=== PATIENT | female | born 1995 | race Two or more races ===

== ENCOUNTER 2018-08-21 13:17 | Emergency (ER) | payer SELFPAY ==
[~2018-08-21] VITALS: Ht 152.4 cm; Wt 83.9 kg
[2018-08-21 13:29] VITALS: BP 127/92
[2018-08-21] MEDS: TETANUS-DIPTH-ACEL PERTUSSIS 0.5ML SYRG IM ONE (16:13)
== END 2018-08-21 16:15 | disposition home or self-care (01) ==
LOC: ER 13:17
DX: S31.133A Puncture wound of abdominal wall without foreign body, right lower quadrant without penetration into peritoneal cavity, initial encounter (principal); W54.0XXA Bitten by dog, initial encounter; Y93.89 Activity, other specified; Y92.89 Other specified places as the place of occurrence of the external cause; Y99.8 Other external cause status
CPT/HCPCS: 90471; 90715